=== PATIENT | male | born 1965 | race African-American/Black ===

== ENCOUNTER 2021-05-21 13:43 | Emergency (ER) | payer SELFPAY ==
[2021-05-21 14:17] LABS: #Basophils 0.1 thou/uL (0.0-0.2); #Eosinphils 0.1 thou/uL (0.0-0.7); #Lymphocytes 2.6 thou/uL (1.20-3.40); #Monocytes 0.6 thou/uL (0.11-0.59); #Neutrophils 5.6 thou/uL (1.40-6.50); %Eosinophils 1.7 % (0.0-10.0); %Lymphocytes 28.5 % (21.0-51.0); %Monocytes 6.2 % (0.0-10.0); %Neutrophils 62.7 % (42.0-75.0); Hemoglobin 14.6 g/dL (14.0-18.0); Mean Corpuscular HGB CONC 32.5 g/dL (32.0-36.0); Mean Corpuscular Hemoglobin 28.7 pg (27.0-31.0); Mean Corpuscular Volume 88.3 fL (78.0-98.0); Mean Platelet Volume 10.8 fL (7.4-10.4); Platelet Count 256 thou/uL (130-400); RBC Distribution Width 10.9 % (11.5-14.5)
[2021-05-21 14:24] LABS: Bilirubin Negative (Negative); Blood, Urine Negative (Negative); Clarity Clear (Clear); Glucose, Urine (Dipstick) >=1000 mg/dL (Negative); Ketone, Urine Negative (Negative); Leukocyte Negative (Negative); Nitrite Negative (Negative); Protein, Urine (Dipstick) Negative (Neg-Trace); Urobilinogen 0.2 mg/dL (Less than 2)
[2021-05-21 14:56] LABS: BUN (Urea Nitrogen) 30 mg/dL (8.4-25.7); Calc. Creatinine Clearance 0 mL/min (70-130); Carbon Dioxide 21 mmol/L (22-29); Chloride 97 mmol/L (98-107); Potassium 4.1 mmol/L (3.5-5.1); Sodium 131 mmol/L (136-145)
[2021-05-21] MEDS ORDERED: Aspirin Chewable 81 MG TAB ONE ×2 (14:56→14:57)
[2021-05-21 14:57] LABS: ALT (SGPT) 36 U/L (8-55); AST (SGOT) 32 U/L (5-34); Albumin 3.9 g/dL (3.5-5.0); Alkaline Phosphatase 65 U/L (40-110); Bilirubin, Total 0.3 mg/dL (0.2-1.2); Calcium 9.8 mg/dL (7.8-10.44); Globulin 3.7 g/dL (2.4-3.5); Glucose 555 mg/dL (70-105); Protein, Total 7.6 g/dL (6.0-8.3)
[2021-05-21 14:58] LABS: Anion Gap 17 mmol/L (10-20)
[2021-05-21 15:03] LABS: PTT 26.7 sec (22.9-36.1); Prothrombin Time 12.9 sec (12.0-14.7)
[2021-05-21] MEDS ORDERED: Insulin Regular 300 UNITS/3 ML VIAL ONE (15:07)
[2021-05-21 15:18] LABS: CKMB 2.1 ng/mL (0-6.6)
[2021-05-21 18:20] LABS: Troponin I 0.097 ng/mL (< 0.028)
[2021-05-21 21:15] LABS: Troponin I 0.077 ng/mL (< 0.028)
== END 2021-05-21 20:50 | disposition short-term general hospital (02) ==
LOC: NAV ERS 13:43
DX: I63.9 Cerebral infarction, unspecified (principal); E11.9 Type 2 diabetes mellitus without complications; N28.9 Disorder of kidney and ureter, unspecified; E78.5 Hyperlipidemia, unspecified; E78.00 Pure hypercholesterolemia, unspecified; I10 Essential (primary) hypertension; R77.8 Other specified abnormalities of plasma proteins
CPT/HCPCS: 36416; 70450; 80053; 81003; 82553; 84484; 85025; 85610; 85730; 93005; 96374; J1815